=== PATIENT | female | born 1990 | race Caucasian/White ===

== ENCOUNTER 2019-03-03 19:22 | Emergency (ER) | payer OTHER ==
[2019-03-03 20:30] LABS: #Basophils 0.1 thou/uL (0.0-0.2); #Eosinphils 0.1 thou/uL (0.0-0.7); #Lymphocytes 2.3 thou/uL (1.20-3.40); #Monocytes 0.8 thou/uL (0.11-0.59); #Neutrophils 8.7 thou/uL (1.40-6.50); %Basophils 0.5 % (0.0-1.0); %Lymphocytes 19.2 % (21.0-51.0); %Monocytes 6.7 % (0.0-10.0); %Neutrophils 72.6 % (42.0-75.0); Hemoglobin 15.6 g/dL (12.0-16.0); Mean Corpuscular HGB CONC 34.2 g/dL (32.0-36.0); Mean Corpuscular Hemoglobin 31.4 pg (27.0-31.0); Mean Corpuscular Volume 91.8 fL (78.0-98.0); Mean Platelet Volume 7.4 fL (7.4-10.4); Platelet Count 295 thou/uL (130-400); RBC Distribution Width 11.4 % (11.5-14.5); Red Blood Cell (RBC) Count 4.97 mill/uL (4.20-5.40)
[2019-03-03 20:30] LABS: Bilirubin Negative (Negative); Blood, Urine Negative (Negative); Clarity Clear (Clear); Glucose, Urine (Dipstick) Normal (Negative); Leukocyte Negative Leu/uL (Negative); Nitrite Negative (Negative); Protein, Urine (Dipstick) Negative (Neg-Trace); Urobilinogen Normal mg/dL (Less than 2)
[2019-03-03 20:48] LABS: BHCG - Serum Negative (NEGATIVE); Pregs Control Background? CLEAR/WHITE (CLR/WHITE); Pregs Control Bar Appear? YES (CONTROL BAR)
[2019-03-03 20:55] LABS: ALT (SGPT) 43 U/L (8-55); AST (SGOT) 26 U/L (5-34); Albumin 4.8 g/dL (3.5-5.0); Alkaline Phosphatase 79 U/L (40-150); Anion Gap 14 mmol/L (10-20); BUN (Urea Nitrogen) 7 mg/dL (7.0-18.7); Bilirubin, Total 0.3 mg/dL (0.2-1.2); Calc. Creatinine Clearance 0 mL/min (70-130); Calcium 10.1 mg/dL (7.8-10.44); Carbon Dioxide 24 mmol/L (22-29); Chloride 102 mmol/L (98-107); Estimated GFR-MDRD 86; Glucose 95 mg/dL (70-105); Lipase 52 U/L (8-78); Potassium 3.8 mmol/L (3.5-5.1); Protein, Total 7.8 g/dL (6.0-8.3); Sodium 136 mmol/L (136-145)
[2019-03-03] MEDS ORDERED: Ondansetron PF 4 MG/2 ML Vial ONE (21:24)
[2019-03-03] MEDS ORDERED: Fentanyl 100 MCG/2 ML VIAL ONE (21:32)
--- NOTE | 2019-03-03 22:42 | ULT ---
RIGHT UPPER QUADRANT ULTRASOUND CLINICAL HISTORY: Right upper quadrant pain. COMPARISON: None FINDINGS: Liver:Fatty infiltration of the liver. No focal mass identified. Bile ducts: No intrahepatic or extrahepatic biliary dilation.; common bile duct: 0.31cm. Gallbladder: Normal appearing. Anderson's sign:None Main portal vein:Patent with hepatopedal flow. Pancreas: Visualized pancreas appears normal. Right kidney: No pelvicalyceal dilatation. Right kidney measures 10.9 x 4.7 x 5.0 cm. Additional findings: None. IMPRESSION: Fatty liver
[2019-03-03] MEDS ORDERED: diphenhydrAMINE 50 MG/ML VIAL ONE (22:56)
[2019-03-03] MEDS ORDERED: Metoclopramide HCl 10 MG/2 ML VIAL ONE (22:56)
== END 2019-03-04 00:14 | disposition home or self-care (01) ==
LOC: ERS 19:22
DX: K82.8 Other specified diseases of gallbladder (principal); Z87.891 Personal history of nicotine dependence
CPT/HCPCS: 36415; 76705; 80053; 81003; 83690; 84703; 85025; 87077; 87086; 96361; 96374; 96375; J1200; J2405; J2765; J3010